=== PATIENT | female | born 1980 | race Hispanic/Latino ===

== ENCOUNTER 2023-09-08 16:38 | Outpatient (CLI) | payer OTHER, SELFPAY ==
--- NOTE | ~2023-09-08 | MM_ITS ---
EXAMINATION: MM screening [facility] BI w joesph HISTORY: Screening mammogram TECHNIQUE: Craniocaudal and mediolateral oblique 3-D tomosynthesis images were obtained and synthetic 2-D images were generated. CAD analysis was submitted and interpreted. COMPARISON: No prior mammogram is available for comparison at this institution. BREAST PARENCHYMAL COMPOSITION:Not Dense. There are scattered areas of fibroglandular density. FINDINGS: No suspicious mass, calcification, or architectural distortion are identified in either tamia ast to suggest malignancy. There has been no suspicious interval change. IMPRESSION: No mammographic evidence of malignancy. Recommend routine screening mammography in one year. BI-RADS Category 1: Negative Reviewed, dictated and finalized at location .
== END 2023-09-08 16:39 | disposition home or self-care (01) ==
PROVIDERS: Visit Provider Physician Assistant
DX: Z12.31 Encounter for screening mammogram for malignant neoplasm of breast (principal)
CPT/HCPCS: 77063; 77067